=== PATIENT | female | born 2005 | race Caucasian/White ===

== ENCOUNTER 2025-03-21 22:32 | Emergency (ER) | payer SELFPAY ==
[~2025-03-21] VITALS: Ht 157.5 cm; Wt 59.0 kg
[2025-03-21 23:29] VITALS: BP 128/70; TEMP 98.5; O2SAT 99
[2025-03-21 23:52] LABS: PREGNANCY TEST URINE QUAL NEGATIVE (NEGATIVE)
[2025-03-21 23:54] LABS: APPEARANCE,URINE CLEAR (CLEAR); BLOOD, URINE NEGATIVE Ery/uL (NEGATIVE); LEUKOCYTE ESTERASE ,URINE 2+ (NEGATIVE); NITRITE, URINE POSITIVE (NEGATIVE); UGLUCOSE NEGATIVE (NEGATIVE)
[2025-03-21] MEDS ORDERED: NITR100C6 PO (23:57)
[2025-03-21 23:59] LABS: SQUAMOUS EPITHELIAL CELL,UR Moderate /HPF (None Seen)
[2025-03-22 00:01] LABS: ADD URINE CULTURE YES
[2025-03-22] MEDS ORDERED: NITROFURANTOIN/MONOHYDRATE MACROCRYSTALS 100 MG CAPSULE ONE (00:01)
[2025-03-22] MEDS: NITROFURANTOIN/MONOHYDRATE MACROCRYSTALS 100 MG CAPSULE PO ONE (00:03)
== END 2025-03-22 00:15 | disposition home or self-care (01) ==
LOC: ER 22:48
DX: N39.0 Urinary tract infection, site not specified (principal); Z88.0 Allergy status to penicillin; Z60.2 Problems related to living alone
CPT/HCPCS: 81001; 84703-TC; 87086-TC; 87186-TC